=== PATIENT | female | born 1945 | race Caucasian/White ===

== ENCOUNTER → 2016-11-25 | Outpatient (CLI) | payer OTHER, MEDICARE | LOC: FIMAGING 11:44 | PROVIDERS: ATTEND Internal Medicine | DX: Z12.31 Encounter for screening mammogram for malignant neoplasm of breast (principal) | CPT/HCPCS: G0202 ==

== ENCOUNTER 2017-02-24 10:57 | Emergency (ER) | payer OTHER, MEDICARE ==
[2017-02-24 11:07] VITALS: RESP 18; TEMP 97.5
--- NOTE | 2017-02-24 11:14 | EDPHY ---
H & P Stated Complaint: Feels SOB >1 wk with exertion Time Seen by Provider: 02/24/17 11:13 HPI/ROS: CHIEF COMPLAINT: Dyspnea HISTORY OF PRESENT ILLNESS: The patient presents the ED with a 1 week history of mild dyspnea on exertion. The patient denies prior history of the symptoms. She does have a remote history of SVT but denies arrhythmia. She denies any fever, cough or congestion. She denies any acute asymmetric calf pain or swelling but does have a history of chronic right posterior knee pain. The patient denies any history of trauma. The patient denies any additional complaints of abdominal pain, extremity pain/numbness or acute headache. REVIEW OF SYSTEMS: A comprehensive 10 point review of systems is otherwise negative aside from elements mentioned in the history of present illness. Source: Patient Exam Limitations: No limitations - Personal History Current Tetanus Diphtheria and Acellular Pertussis (TDAP): Yes - Medical/Surgical History Hx Asthma: No Hx Chronic Respiratory Disease: No Hx Diabetes: No Hx Cardiac Disease: Yes Hx Renal Disease: No Hx Cirrhosis: No Hx Alcoholism: No Hx HIV/AIDS: No Hx Splenectomy or Spleen Trauma: No Other PMH: medical SVT, Graves Disease, Vitiligo. surgery Total thyroidectomy, appendectomy - Social History Smoking Status: Never smoked - Physical Exam Exam: General Appearance: Alert, no distress Eyes: Pupils equal and round no pallor or injection ENT, Mouth: Mucous membranes moist Respiratory: There are no retractions, lungs are clear to auscultation Cardiovascular: Regular rate and rhythm Gastrointestinal: Abdomen is soft and nontender, no masses, bowel sounds normal Neurological: A&O, normal motor function, normal sensory exam, normal cranial nerves Skin: Warm and dry, no rashes Musculoskeletal: Neck is supple nontender Extremities: Mild right calf tenderness without appreciable asymmetry. Constitutional: Initial Vital Signs Temperature (C) 36.4 C 02/24/17 11:03 Heart Rate 88 02/24/17 11:03 Respiratory Rate 18 02/24/17 11:03 Blood Pressure 140/91 H 02/24/17 11:03 O2 Sat (%) 98 02/24/17 11:03 O2 Delivery Mode Room Air Allergies/Adverse Reactions: chlordiazepoxide HCl [From Librium] Allergy (Verified 02/24/17 11:02) ANGER sertraline HCl [From Zoloft] Allergy (Verified 02/24/17 11:02) Other-Enter Comments Home Medications: Medication Instructions Recorded Levothyroxine [Synthroid 175 mcg 175 mcg PO DAILY06 02/24/17 (*)] Lisinopril [Zestril 40 mg (*)] 40 mg PO 02/24/17 Pravastatin Sodium 20 mg PO 02/24/17 buPROPion [Wellbutrin] 450 mg PO 02/24/17 lamoTRIgine [LamICTAL 100 MG (*)] 200 mg PO 02/24/17 Medical Decision Making - Diagnostics EKG Interpretation: EKG: Complete interpretation has been separately recorded in the [facility] archive. Summary impression: Sinus rhythm, rate 76, first-degree AV block ED Course/Re-evaluation: The patient presents to the ED with a one-week history of dyspnea. She denies any chest pain. She has had some chronic right posterior knee pain. The patient's lungs are noted to be clear to auscultation bilaterally. Her initial EKG demonstrates no evidence of ischemia. The patient's D-dimer is elevated at 0.81. A CT pulmonary angiogram has been ordered in this moderate risk by Wells criteria patient. CT pulmonary angiogram demonstrates no evidence of pulmonary embolism, pneumonia or effusion. The patient was kept on a monitor throughout her stay in the emergency department. At this point time the etiology of her mild dyspnea is uncertain. I certainly see no indication for antibiotics or additional testing at this point time. The patient certainly may have a component of anxiety as a cause of her symptoms. I do feel the patient can follow up with her primary care provider for any ongoing symptoms and return to see us for worsening symptoms. I re-evaluated the patient at 2:00 p.m.. She is in no acute distress and her vital signs are stable. Differential Diagnosis: Differential diagnosis considered includes pulmonary embolism, bronchitis, pneumonia, congestive heart failure, arrhythmia, myocardial infarction - Data Points Laboratory Results: Laboratory Results 02/24/17 11:30 02/24/17 11:30 02/24/17 02/24/17 02/24/17 11:55 11: 11: WBC 6.98 10^3/uL 10^3/uL (3.80-9.50) RBC 4.37 10^6/uL 10^6/uL (4.18-5.33) Hgb 14.4 g/dL g/dL (12.6-16.3) Hct 42.7 % % (38.0-47.0) MCV 97.7 fL fL (81.5-99.8) MCH 33.0 pg pg (27.9-34.1) MCHC 33.7 g/dL g/dL (32.4-36.7) RDW 13.1 % % (11.5-15.2) Plt Count 134 10^3/uL L 10^3/uL (150-400) MPV 10.0 fL fL (8.7-11.7) Neut % (Auto) 64.3 % % (39.3-74.2) Lymph % (Auto) 21.3 % % (15.0-45.0) [place] % (Auto) 8.9 % % (4.5-13.0) Eos % (Auto) 4.6 % % (0.6-7.6) Baso % (Auto) 0.6 % % (0.3-1.7) Nucleat RBC Rel Count 0.0 % % (0.0-0.2) Absolute Neuts (auto) 4.49 10^3/uL 10^3/uL (1.70-6.50) Absolute Lymphs (auto) 1.49 10^3/uL 10^3/uL (1.00-3.00) Absolute Monos (auto) 0.62 10^3/uL 10^3/uL (0.30-0.80) Absolute Eos (auto) 0.32 10^3/uL 10^3/uL (0.03-0.40) Absolute Basos (auto) 0.04 10^3/uL 10^3/uL (0.02-0.10) Absolute Nucleated RBC 0.00 10^3/uL 10^3/uL (0-0.01) Immature Gran % 0.3 % % (0.0-1.1) Immature Gran # 0.02 10^3/uL 10^3/uL (0.00-0.10) D-Dimer 0.81 ug/mLFEU H ug/mLFEU (0.00-0.50) Sodium 138 mEq/L mEq/L (134-144) Potassium 5.9 mEq/L H mEq/L (3.5-5.2) Chloride 107 mEq/L mEq/L (97-110) Carbon Dioxide 20 mEq/l L mEq/l (22-31) Anion Gap 11 mEq/L mEq/L (8-16) BUN 19 mg/dL mg/dL (7-23) Creatinine 0.8 mg/dL mg/dL (0.6-1.0) Estimated GFR > 60 Glucose 84 mg/dL mg/dL (70-100) Calcium 8.9 mg/dL mg/dL (8.5-10.4) Troponin I < 0.012 ng/mL ng/mL (0.000-0.034) NT-Pro-B Natriuret Pep 104 pg/mL pg/mL (0-125) Specimen Hemolysis 235 Departure - Departure Disposition: Home, Routine, Self-Care Clinical Impression: Dyspnea Condition: Good Instructions: Dyspnea (ED) Additional Instructions: 1. The testing in the emergency department demonstrates no evidence of an arrhythmia, heart attack, pneumonia or blood clot. 2. I recommend conservative management of your symptoms at this point time. You should return to the ED immediately for the development of any chest pain or worsening shortness of breath. 3. Please schedule a follow-up appointment with your primary care provider for a recheck as needed. Referrals: Deann Jordan MD [Primary Care Provider] - As per Instructions
[2017-02-24 11:48] LABS: % IMMATURE GRANULYOCYTES 0.3 % (0.0-1.1); ABSOLUTE IMMATURE GRANULOCYTES 0.02 10^3/uL (0.00-0.10); ADD DIFF? NO; ADD MORPH? NO; ADD SCAN? NO; ATYPICAL LYMPHOCYTE FLAG 20 (0-99); FRAGMENT RBC FLAG 0 (0-99); HEMATOCRIT 42.7 % (38.0-47.0); HEMOGLOBIN 14.4 g/dL (12.6-16.3); LEFT SHIFT FLG 0 (0-99); LIPEMIA HEMOLYSIS FLAG 80 (0-99); MEAN CELL HEMOGLOBIN CONCENTR. 33.7 g/dL (32.4-36.7); MEAN CELL VOLUME 97.7 fL (81.5-99.8); PLATELET CLUMPS FLAG 20 (0-99); PLATELET COUNT 134 10^3/uL (150-400); RED BLOOD CELL COUNT 4.37 10^6/uL (4.18-5.33); RED CELL DISTRIBUTION WIDTH 13.1 % (11.5-15.2)
[2017-02-24 11:59] LABS: ANION GAP 11 mEq/L (8-16); CALCIUM 8.9 mg/dL (8.5-10.4); CARBON DIOXIDE 20 mEq/l (22-31); CHLORIDE 107 mEq/L (97-110); CREATININE 0.8 mg/dL (0.6-1.0); GLOMERULAR FILTRATION RATE > 60; GLUCOSE 84 mg/dL (70-100); POTASSIUM 5.9 mEq/L (3.5-5.2); SODIUM 138 mEq/L (134-144)
[2017-02-24 12:03] LABS: SPECIMEN HEMOLYSIS 235
[2017-02-24 12:11] LABS: TROPONIN I < 0.012 ng/mL (0.000-0.034)
--- NOTE | 2017-02-24 12:18 | CPEKG ---
Heart Rate: 76 RR Interval: 789 P-R Interval: 236 QRSD Interval: 108 QT Interval: 388 QTC Interval: 437 P [place]: 53 QRS [place]: 16 T Wave [place]: 51 EKG Severity - ABNORMAL ECG - EKG Impression: SINUS RHYTHM EKG Impression: FIRST DEGREE AV BLOCK Electronically Signed By: Virgil Wilkes 24-Feb-2017 13:01:05
[2017-02-24 12:24] VITALS: PULSE 85
[2017-02-24] MEDS ORDERED: IOPAMIDOL (ISOVUE 370) 100 ML BTL IV ONE (12:54)
[2017-02-24 14:22] VITALS: BP 111/85; O2SAT 94
== END 2017-02-24 14:22 | disposition home or self-care (01) ==
DX: R06.00 Dyspnea, unspecified (principal)
CPT/HCPCS: 71275; 93005; 99285; Q9967

== ENCOUNTER 2017-07-31 10:36 | Emergency (ER) | payer OTHER, MEDICARE ==
--- NOTE | 2017-07-31 11:04 | CPEKG ---
Heart Rate: 135 RR Interval: 444 QRSD Interval: 100 QT Interval: 328 QTC Interval: 492 QRS [place]: 17 T Wave [place]: 39 EKG Severity - ABNORMAL ECG - EKG Impression: JUNCTIONAL TACHYCARDIA EKG Impression: PROBABLE INFERIOR INFARCT, OLD EKG Impression: BORDERLINE PROLONGED QT INTERVAL Electronically Signed By: Olman Huffman 31-Jul-2017 14:44:19
[2017-07-31 11:57] LABS: PLATELET COUNT 162 10^3/uL (150-400)
--- NOTE | 2017-07-31 12:57 | EDPHY ---
HPI/HX/ROS/PE/MDM Narrative: CHIEF COMPLAINT: Rapid heart rate HPI: The patient is a 72 y/o female with a history of SVT, 1st degree AV block, and a thyroidectomy complaining of an intermittent, rapid, erratic heart rate and shortness of breath since Tuesday night, 2 days ago. Per her Fitbit, her heart rate has been between low 70's-140 since onset of symptoms. In prior episodes of SVT she did not have shortness of breath. She had a chest CT for shortness of breath in January 2017 and a heart scan 12 years ago which revealed high calcium; she is followed by Dr. Ash, cyber transport systems specialist. Denies recent medication changes. Denies chest pain or shortness of breath currently. Denies abdominal pain, urinary complaints, paresthesias, numbness, fever. REVIEW OF SYSTEMS: Aside from elements discussed in the HPI, a comprehensive 10-point review of systems was reviewed and is negative. PMH: SVT, 1st degree AV block, Graves Disease, vitiligo, total thyroidectomy, appendectomy SOCIAL HISTORY: Single, lives in [place], retired PHYSICAL EXAM: General: Patient is alert, in no acute distress. ENT: Eyes are normal to inspection. ENT inspection normal. Neck: Normal inspection. Full range of motion. Respiratory: No respiratory distress. Breath sounds normal bilaterally. Cardiovascular: Tachycardic with a rate of 133. Strong peripheral pulses. Normal cap refill. Abdomen: The abdomen is nontender to palpation. There are no peritoneal signs. There are normal bowel sounds. Back: Normal to inspection. No tenderness to palpation. Skin: Normal color. No rash. Warm and dry. Extremities: Normal appearance. Full range of motion. Neuro: Oriented x3. Normal motor function. Normal sensory function. ED Course: 1053: EKG was ordered and interpreted by myself. Please see [employer] system for official reading. 1357: Additional 5mg IV Metoprolol given as patient is still tachycardic following 1L IV NS and 5mg IV Metoprolol. 1458: EKG was ordered and interpreted by myself. Please see [employer] system for official reading. This EKG is unchanged from prior EKG. Patient's rhythm strip reveals periodic P wave. 1524: Reassessed patient and discussed EKG and laboratory findings. She continues to feel the same as initial assessment. 1530: Consulted with Dr. Lloyd, cyber transport systems specialist, regarding this patient. 1556: Reassessed patient and discussed consultation with Dr. Lloyd. She is comfortable with being administered Adenosine. 1600: Reassessed patient, 6mg IV Adenosine given. Patient has converted to sinus rhythm with a rate of 80. 1609: EKG was ordered and interpreted by myself as sinus rhythm. Please see [employer] system for official reading. 1612: Consulted with Dr. Lloyd, patient will be given a prescription for Cardizem. 1622: Reassessed patient, she remains in sinus rhythm and is safe to be discharged home. I have advised her to follow up with a cyber transport systems specialist within 72 hours. Return precautions provided; patient is comfortable with this plan. MDM: This patient presents with apparent recurrence of SVT/junctional tachycardia which was converted to NSR with a single dose of 6mg adenosine. Workup for potential causes was negative, and there is no evidence of hyperthyroid state, PE, ACS, hyperkalemia or dehydration. Patient is asymptomatic and would like to go home. I have written a short course of Cardizem per advice of Dr. Lloyd. - Data Points Laboratory Results: Laboratory Results 07/31/17 11:14 07/31/17 11:14 07/31/17 07/31/17 07/31/17 11:15 11:15 11:14 WBC RBC Hgb Hct MCV MCH MCHC RDW Plt Count MPV Neut % (Auto) Lymph % (Auto) [place] % (Auto) Eos % (Auto) Baso % (Auto) Nucleat RBC Rel Count Absolute Neuts (auto) Absolute Lymphs (auto) Absolute Monos (auto) Absolute Eos (auto) Absolute Basos (auto) Absolute Nucleated RBC Immature Gran % Immature Gran # D-Dimer 0.51 ug/mLFEU H ug/mLFEU (0.00-0.50) Sodium 141 mEq/L mEq/L (135-145) Potassium 4.5 mEq/L mEq/L (3.5-5.2) Chloride 109 mEq/L mEq/L (97-110) Carbon Dioxide 22 mEq/l mEq/l (22-31) Anion Gap 10 mEq/L mEq/L (8-16) BUN 19 mg/dL mg/dL (7-23) Creatinine 0.7 mg/dL mg/dL (0.6-1.0) Estimated GFR > 60 Glucose 119 mg/dL H mg/dL (70-100) Calcium 8.9 mg/dL mg/dL (8.5-10.4) Troponin I TSH 1.590 uIU/mL uIU/mL (0.465-4.680) 07/31/17 07/31/17 11:14 11:00 WBC 7.53 10^3/uL 10^3/uL (3.80-9.50) RBC 4.45 10^6/uL 10^6/uL (4.18-5.33) Hgb 14.6 g/dL g/dL (12.6-16.3) Hct 42.1 % % (38.0-47.0) MCV 94.6 fL fL (81.5-99.8) MCH 32.8 pg pg (27.9-34.1) MCHC 34.7 g/dL g/dL (32.4-36.7) RDW 12.7 % % (11.5-15.2) Plt Count 162 10^3/uL 10^3/uL (150-400) MPV 10.2 fL fL (8.7-11.7) Neut % (Auto) 64.6 % % (39.3-74.2) Lymph % (Auto) 23.5 % % (15.0-45.0) [place] % (Auto) 7.6 % % (4.5-13.0) Eos % (Auto) 3.3 % % (0.6-7.6) Baso % (Auto) 0.7 % % (0.3-1.7) Nucleat RBC Rel Count 0.0 % % (0.0-0.2) Absolute Neuts (auto) 4.87 10^3/uL 10^3/uL (1.70-6.50) Absolute Lymphs (auto) 1.77 10^3/uL 10^3/uL (1.00-3.00) Absolute Monos (auto) 0.57 10^3/uL 10^3/uL (0.30-0.80) Absolute Eos (auto) 0.25 10^3/uL 10^3/uL (0.03-0.40) Absolute Basos (auto) 0.05 10^3/uL 10^3/uL (0.02-0.10) Absolute Nucleated RBC 0.00 10^3/uL 10^3/uL (0-0.01) Immature Gran % 0.3 % % (0.0-1.1) Immature Gran # 0.02 10^3/uL 10^3/uL (0.00-0.10) D-Dimer Sodium Potassium Chloride Carbon Dioxide Anion Gap BUN Creatinine Estimated GFR Glucose Calcium Troponin I < 0.012 ng/mL ng/mL (0.000-0.034) TSH Medications Given: Discontinued Medications Adenosine (Adenosine) 6 mg IVP EDNOW ONE Stop: 07/31/17 15:56 Last Admin: 07/31/17 16:06 Dose: 6 mg Sodium Chloride (Ns) 1,000 mls @ 0 mls/hr IV EDNOW ONE; Wide Open PRN Reason: Protocol Stop: 07/31/17 13:07 Last Admin: 07/31/17 13:27 Dose: 1,000 mls Metoprolol Tartrate (Lopressor Injection) 5 mg IVP EDNOW ONE Stop: 07/31/17 13:08 Last Admin: 07/31/17 13:27 Dose: 5 mg Metoprolol Tartrate (Lopressor Injection) 5 mg IVP EDNOW ONE Stop: 07/31/17 13:57 Last Admin: 07/31/17 14:14 Dose: 5 mg General Time Seen by Provider: 07/31/17 12:56 Initial Vital Signs: Initial Vital Signs Temperature (C) 36.7 C 07/31/17 10:41 Heart Rate 142 H 07/31/17 10:41 Respiratory Rate 20 07/31/17 10:41 Blood Pressure 122/81 H 07/31/17 10:41 O2 Sat (%) 95 07/31/17 10:41 O2 Delivery Mode Room Air Allergies/Adverse Reactions: chlordiazepoxide HCl [From Librium] Allergy (Verified 07/31/17 10:40) ANGER sertraline HCl [From Zoloft] Allergy (Verified 07/31/17 10:40) Other-Enter Comments Home Medications: Medication Instructions Recorded Levothyroxine [Synthroid 175 mcg 175 mcg PO DAILY06 02/24/17 (*)] Lisinopril [Zestril 40 mg (*)] 40 mg PO 02/24/17 Pravastatin Sodium 20 mg PO 02/24/17 buPROPion [Wellbutrin] 450 mg PO 02/24/17 lamoTRIgine [LamICTAL 100 MG (*)] 200 mg PO 02/24/17 Diltiazem HCl [Cardizem Cd] 120 mg PO DAILY #10 cap.er.24h 07/31/17 Departure - Departure Disposition: Home, Routine, Self-Care Clinical Impression: Supraventricular tachycardia Condition: Good Instructions: Supraventricular Tachycardia (ED) Additional Instructions: Take Cardizem as prescribed. Follow-up with your cyber transport systems specialist within 72 hours. Return to the Emergency Department for fever, chest pain, shortness of breath, increasing pain or other worsening of condition. Referrals: Deann Jordan MD [Primary Care Provider] - As per Instructions Kj Ash MD [Medical Doctor] - As per Instructions Prescriptions: Diltiazem HCl [Cardizem Cd] 120 mg PO DAILY #10 cap.er.24h Report Scribed for: Tian High Report Scribed by: Kecia Carlson Date of Report: 07/31/17 Time of Report: 12:56 Physician Review and Approval Statement: Portions of this note were transcribed by an ED scribe. I personally performed the history, physical exam, and medical decision making; and confirm the accuracy of the information in the transcribed note.
[2017-07-31] MEDS ORDERED: NS 1,000 ML IV ONE (13:06)
[2017-07-31] MEDS ORDERED: METOPROLOL TARTRATE 5 MG/5 ML INJ IVP ONE ×2 (13:07→13:56)
--- NOTE | 2017-07-31 15:00 | CPEKG ---
Heart Rate: 117 RR Interval: 513 QRSD Interval: 98 QT Interval: 348 QTC Interval: 486 QRS [employer]: 21 T Wave [employer]: 31 EKG Severity - ABNORMAL ECG - EKG Impression: JUNCTIONAL TACHYCARDIA EKG Impression: BORDERLINE PROLONGED QT INTERVAL Electronically Signed By: Tian High 31-Jul-2017 20:27:14
[2017-07-31] MEDS ORDERED: ADENOSINE 6 MG/2 ML VIAL IVP ONE (15:55)
--- NOTE | 2017-07-31 16:11 | CPEKG ---
Heart Rate: 79 RR Interval: 759 P-R Interval: 252 QRSD Interval: 98 QT Interval: 396 QTC Interval: 455 P [place]: 43 QRS [place]: 12 T Wave [place]: 50 EKG Severity - ABNORMAL ECG - EKG Impression: SINUS RHYTHM EKG Impression: FIRST DEGREE AV BLOCK EKG Impression: BORDERLINE INFERIOR Q WAVES Electronically Signed By: Tian High 31-Jul-2017 20:26:51
[2017-07-31 16:55] VITALS: BP 107/64
== END 2017-07-31 16:55 | disposition home or self-care (01) ==
LOC: EEVIPCON 10:36
DX: I47.1 Supraventricular tachycardia (principal); E86.9 Volume depletion, unspecified
CPT/HCPCS: 93005; 96374; 96375; 96376; 99284; J0153